=== PATIENT | female | born 1965 | race Two or more races ===

== ENCOUNTER 2025-03-14 12:47 | Outpatient (CLI) | payer OTHER, SELFPAY ==
[2025-03-15 11:14] LABS: Lyme Ab w Rflx to Lyme Confirm Positive (Negative)
[2025-03-15 14:12] LABS: Lyme IgG Ab Positive (Negative)
[2025-03-18 17:54] LABS: B. miyamotoi PCR Negative (Negative); Babesia divergens/MO-1 Negative (Negative); Ehrlichia muris eauclairensis Negative (Negative)
== END 2025-03-14 12:48 | disposition home or self-care (01) ==
PROVIDERS: PCP Family Medicine; Visit Provider Otolaryngology
DX: H91.21 Sudden idiopathic hearing loss, right ear (principal); R42 Dizziness and giddiness
CPT/HCPCS: 36415; 86617; 87798; 86618

== ENCOUNTER 2025-04-10 02:13 | Outpatient (CLI) | payer OTHER, SELFPAY ==
--- NOTE | 2025-04-10 07:15 | DI.MRI_ITS ---
Exam(s) MR IAC BRAIN WO/W EXAM: MR IAC BRAIN WO/W CLINICAL HISTORY: ? central process,SUDDEN ONSET SN HEARING LOSS RT,VERTIGO. TECHNIQUE: Multiplanar multisequence MRI of the brain and internal auditory canals was performed. CONTRAST MATERIAL: IV Contrast: 11 mL of Dotarem contrast administered. CT CT STROKE COMPLETE CTA HEAD NECK from 02/03/2025 FINDINGS: VENTRICLES AND EXTRA AXIAL SPACES: Normal in size and morphology for the patient's age. HEMORRHAGE: None. CEREBRAL PARENCHYMA: No focus of restricted diffusion to suggest acute infarct. No space-occupying lesion identified.Punctate susceptibility artifact again noted in the left posterior parietal lobe consistent with old microhemorrhage. No abnormal high signal lesions in the white matter. MIDLINE SHIFT: None. BRAINSTEM/CEREBELLUM: Normal. CALVARIUM: Normal. ENHANCEMENT: No suspicious enhancement identified. VISUALIZED PARANASAL SINUSES/MASTOIDS: Mild fluid in the inferior mastoid air cells. ORBITS: Unremarkable. IAC/CP ANGLE: The internal auditory canals are within normal limits. The cerebellar pontine angles are unremarkable. No enhancing lesions are seen. Visualized portions of the cranial nerves appear within normal limits. IMPRESSION: Unremarkable MRI of the brain and internal auditory canals. Minimal amount of fluid in the inferior mastoid air cells bilaterally. DATA REPOSITORY:
[2025-04-10] MEDS: Gadoterate meglumine 20 ML SYRINGE 11 ML IVP (10:16)
[2025-04-10] MEDS: Normal Saline Flush 10 ML SYR IVP (10:18)
== END 2025-04-10 02:33 ==
PROVIDERS: PCP Family Medicine; Visit Provider Otolaryngology
DX: H91.21 Sudden idiopathic hearing loss, right ear (principal); R42 Dizziness and giddiness
CPT/HCPCS: 70553